=== PATIENT | female | born 1985 | race Caucasian/White ===

== ENCOUNTER 2017-05-01 04:35 | Emergency (ER) | payer MEDICAID ==
[~2017-05-01] VITALS: Ht 149.9 cm; Wt 75.5 kg
[~2017-05-01 04:35] MED LIST: PRENATALS; motrin; tylenol
[2017-05-01 04:41] VITALS: Ht 149.9 cm; Wt 75.5 kg
[2017-05-01] MEDS ORDERED: KETOROLAC 60 MG INJ IM STA (04:53)
[2017-05-01] MEDS ORDERED: PENICILLIN G BENZ 1.2 MIL UNIT SYG IM ONE (05:00)
[2017-05-01] MEDS ORDERED: IBUP-1542 PO (05:13)
[2017-05-01] MEDS ORDERED: PEN500 PO (05:13)
--- NOTE | 2017-05-01 05:29 | ERD ---
ER Documentation Chief Complaint Date/Time DATE: 05/01/17 TIME: 05:23 Chief Complaint Sore throat body aches, chills for 3 days HPI 32-year-old female presents to emergency department for complaints of sore throat that aches and chills for 3 days. Patient's complaining of sore throat, burning pain, 6/10 scale, is worse upon swallowing. Patient did not take any medications to help her symptoms. She denies any stridor. ROS All systems reviewed and are negative except as per history of present illness. Medications Home Meds Active Scripts Penicillin V Potassium* (Penicillin V K*) 500 Mg Tab, 500 MG PO QID for 10 Days , TAB Prov:PEPITO ANTUNEZ [employer] 05/01/17 Ibuprofen* (Motrin*) 600 Mg Tab, 600 MG PO Q6H Y for PAIN AND OR ELEVATED TEMP, #30 TAB Prov:PEPITO ANTUNEZ [employer] 05/01/17 Reported Medications [tylenol] No Conflict Check 08/02/13 [motrin] No Conflict Check 08/02/13 [Prenatals] No Conflict Check 06/28/11 Allergies Allergies: Coded Allergies: No Known Drug Allergy (Verified Allergy, Unknown, 01/05/14) Uncoded Allergies: NONE (Allergy, 06/28/11) PMhx/Soc History of Surgery: Yes (C SECTION ) Anesthesia Reaction: No Hx Neurological Disorder: No Hx Respiratory Disorders: No Hx Cardiac Disorders: No Hx Psychiatric Problems: No Hx Miscellaneous Medical Probl: No Hx Alcohol Use: No Hx Substance Use: No Hx Tobacco Use: No Smoking Status: Never smoker FmHx Family History: No coronary disease, No diabetes, No other Physical Exam Vitals Vital Signs Date Time Temp Pulse Resp B/P Pulse Ox O2 Delivery O2 Flow Rate FiO2 05/01/17 04:41 99.1 98 89 145/70 100 Physical Exam GENERAL: The patient is well developed and appropriate for usual state of health, in no apparent distress. HEENT: Atraumatic. Ears: Normal tympanic membrane, no erythema or bulging. No ear canal swelling. No ear discharge. Nose: normal nasal turbinates, no erythema or swelling. Normal nasal discharge. Throat: oropharynx erythematous with + 2 tonsillar swelling and tonsillar exudates in bilateral tonsils noted. No lymphadenopathy. CHEST: Clear to auscultation bilaterally. There are no rales, wheezes or rhonchi. HEART: Regular rate and rhythm. No murmurs, clicks, rubs or gallops. No S3 or S4. ABDOMEN: Soft, nontender and nondistended. Good bowel sounds. No rebound or guarding. No gross peritonitis. No gross organomegaly or masses. No Zavala sign or McBurney point tenderness. BACK: No midline or flank tenderness. EXTREMITIES: Equal pulses bilaterally. There is no peripheral clubbing, cyanosis or edema. No focal swelling or erythema. Full range of motion. Grossly neurovascularly intact. NEURO: Alert and oriented. Cranial nerves 2-12 intact. Motor strength in all 4 extremities with 5/5 strength. Sensation grossly intact. Normal speech and gait. SKIN: There is no apparent rash or petechia. The skin is warm and dry. HEMATOLOGIC AND LYMPHATIC: There is no evidence of excessive bruising or lymphedema. No gross cervical, axillary, or inguinal lymphadenopathy. Results 24 hrs Current Medications Medications (Trade) Dose Ordered Sig/María Route PRN Reason Start Time Stop Time Status Last Admin Dose Admin Penicillin G Benzathine (Bicillin La) 1,200,000 units ONCE ONCE IM 05/01/17 05:00 05/01/17 05:01 DC Ketorolac Tromethamine (Toradol) 60 mg ONCE STAT IM 05/01/17 04:53 05/01/17 04:55 DC Penicillin G was given here in emergency department for treatment of strep throat.Patient was given medication for pain here in emergency department, after treatment, patient verbalized feeling much better. Patient's pain is improved. Patient tolerated medication well. Procedures/MDM Medical decision making: Patient symptoms is likely consistent with acute bacterial pharyngitis, most likely strep throat. Low suspicion for peritonsillar abscess, mononucleosis, no symptoms of epiglottitis, laryngitis. No oral airway obstruction noted. No symptoms of sepsis at this time. Patient appears well and is hemodynamically stable. Patient was given for penicillin VK , ibuprofen, is advised to follow-up with primary care doctor in 2-3 days for reevaluation of symptoms. Patient is advised to do salt water gargles. Patient is advised to return to emergency department for worsening symptoms. Disposition: Home. Stable. Departure Diagnosis: Primary Impression: Strep throat Condition: Stable Patient Instructions: Strep Throat PEPITO ANTUNEZ NP May 01, 2017 05:29
[2017-05-01 05:58] VITALS: BP 133/65; PULSE 77; RESP 16; TEMP 98.5
== END 2017-05-01 05:59 | disposition home or self-care (01) ==
LOC: FTE 04:35
DX: J02.0 Streptococcal pharyngitis (principal)
CPT/HCPCS: 96372; J0561; J1885; Z7502

== ENCOUNTER 2019-03-01 09:47 | Emergency (ER) | payer MEDICAID ==
[~2019-03-01] VITALS: Wt 63.6 kg
[~2019-03-01 09:47] MED LIST changes: +IBUP-1542 PO; +PENI500T PO
[2019-03-01 09:50] VITALS: BP 122/74; PULSE 73; RESP 18
[2019-03-01] MEDS ORDERED: ONDANSETRON (ODT) 4 MG TAB ODT STA (10:32)
[2019-03-01] MEDS ORDERED: KETOROLAC 30 MG INJ IM STA (10:32)
[2019-03-01] MEDS ORDERED: D-ME473S2 PO (10:34)
[2019-03-01] MEDS ORDERED: AMOX1TAB10 PO (10:34)
[2019-03-01] MEDS ORDERED: IBUP-1542 PO (10:34)
--- NOTE | 2019-03-01 10:38 | ERD ---
ER Documentation Chief Complaint Chief Complaint FLU LIKE SYMPTOMS X 1 WEEK, BOODY ACHES,COUGH HPI 33-year-old female presents with fever nasal congestion which is productive green. She has facial pain. She also has body aches, cough. Symptoms have been worsening over the last week. She has decreased appetite but no vomiting, abdominal pain, urinary complaints. She denies chest pain. She has bitemporal headache. ROS All systems reviewed and are negative except as per history of present illness. Medications Home Meds Active Scripts Dextromethorphan Hb-Promethazine Hcl* (Promethazine DM* Syrup) 473 Ml Syrup, 5 ML PO Q6 PRN for COUGH for 5 Days, ML Prov:LAUREN SMITH MD 03/01/19 Ibuprofen* (Motrin*) 600 Mg Tab, 600 MG PO Q6, #20 TAB Prov:LAUREN SMITH MD 03/01/19 Amoxicillin/Potassium Clav (Amox-Clav 875-125 mg Tablet) 875-125 mg Tab, 1 TAB PO BID for 10 Days, #14 TAB Prov:LAUREN SMITH MD 03/01/19 Penicillin V Potassium* (Penicillin V K*) 500 Mg Tab, 500 MG PO QID for 10 Days, TAB Prov:PEPITO ANTUNEZ NP 05/01/17 Ibuprofen* (Motrin*) 600 Mg Tab, 600 MG PO Q6H PRN for PAIN AND OR ELEVATED TEMP, #30 TAB Prov:PEPITO ANTUNEZ NP 05/01/17 Reported Medications [tylenol] No Conflict Check 08/02/13 [motrin] No Conflict Check 08/02/13 [Prenatals] No Conflict Check 06/28/11 Allergies Allergies: Coded Allergies: No Known Drug Allergy (Verified Allergy, Unknown, 01/05/14) Uncoded Allergies: NONE (Allergy, 06/28/11) PMhx/Soc History of Surgery: Yes (C SECTION ) Anesthesia Reaction: No Hx Neurological Disorder: No Hx Respiratory Disorders: No Hx Cardiac Disorders: No Hx Psychiatric Problems: No Hx Miscellaneous Medical Probl: No Hx Alcohol Use: No Hx Substance Use: No Hx Tobacco Use: No FmHx Family History: No diabetes, No coronary disease, No other Physical Exam Vitals Vital Signs Date Temp Pulse Resp B/P (MAP) Pulse Ox O2 O2 Flow FiO2 Time Delivery Rate 03/01/19 98.9 73 18 122/74 99 09:50 (90) Physical Exam Const: No acute distress Head: Atraumatic Eyes: Normal Conjunctiva ENT: Normal External Ears, Nose and Mouth. Gums normal. Maxillary tenderness. Green yellow nasal congestion, discharge. Neck: Full range of motion. No meningismus. Resp: Clear to auscultation bilaterally. Coarse cough without rales, wheezing or retractions. Cardio: Regular rate and rhythm, no murmurs Abd: Soft, non tender, non distended. Normal bowel sounds Skin: No petechiae or rashes Back: No midline or flank tenderness Ext: No cyanosis, or edema Neur: Awake and alert Psych: Normal Mood and Affect Results 24 hrs Current Medications Medications Dose Sig/María Start Time Status Last (Trade) Ordered Route PRN Stop Time Admin Dose Reason Admin Ketorolac 30 mg ONCE STAT 03/01/19 DC Tromethamine IM 10:32 03/01/19 (Toradol) 10:34 Ondansetron 8 mg ONCE STAT 03/01/19 DC HCl (Zofran ODT 10:32 03/01/19 Odt) 10:34 Procedures/MDM Patient presents with worsening URI symptoms over the last week with fever. She has symptoms consistent with sinusitis. Given the duration of symptoms we will treat with Augmentin, ibuprofen, promethazine although this may be lingering viral illness as well. She was given Toradol and Zofran here in the ED. The patient was stable with no new complaints during the ER course. Clinically, there is no current evidence to suggest meningitis, sepsis, acute abdomen, pneumonia, stroke, acute coronary syndrome, pulmonary embolism, aortic dissection or any other emergent condition appearing to require further evaluation or hospitalization. Patient counseled regarding my diagnostic impression and care plan. Prior to discharge all questions answered. Pt agrees with treatment plan and understands strict return precautions. Pt is instructed to follow up with primary care provider within 24-48 hours. Precautionary instructions provided including instructions to return to the ER if not improving or for any worsening or changing symptoms or concerns. Disclaimer: Inadvertent spelling and grammatical errors are likely due to EHR/dictation software use and do not reflect on the overall quality of patient care. Also, please note that the electronic time recorded on this note does not necessarily reflect the actual time of the patient encounter. Departure Diagnosis: Primary Impression: Influenza-like symptoms Condition: Stable Patient Instructions: Influenza (Adult), Sinusitis, Abx Tx Additional Instructions: vamos a tratar parasinusitis , rekha posiblemente un virus que dura 2-4 murphy. cheque otro vez en el proximo alejo para mas simptomas- vomito, dolor, lizz, problemas con respirando, o con joy doctor primario. LAUREN SMITH MD Mar 01, 2019 10:38
== END 2019-03-01 11:11 | disposition home or self-care (01) ==
LOC: FTE 09:47
DX: R50.9 Fever, unspecified (principal); R05 Cough; R52 Pain, unspecified
CPT/HCPCS: 81025; 96372; J1885; Z7502; Z7610